=== PATIENT | male | born 1945 | race Caucasian/White ===

== ENCOUNTER 2022-08-30 17:12 | Emergency (ER) | payer OTHER ==
[~2022-08-30] VITALS: Ht 177.8 cm; Wt 79.4 kg
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
[2022-08-30] MEDS ORDERED: HYDROCODONE/APAP 5/325MG TABLET PO ONE (17:30)
[2022-08-30] MEDS ORDERED: HYDROCODONE/APAP 5/325MG TABLET ONE (17:34)
--- NOTE | 2022-08-30 19:35 | NUR ---
ARM SLING APPLIED TO AFFECTED SIDE
--- NOTE | 2022-08-30 20:05 | NUR ---
Patient discharged to home in stable condition. Written and verbal after care instructions given. Patient verbalizes understanding of instruction.
[2022-08-30 20:06] VITALS: BP 129/77
== END 2022-08-30 20:06 | disposition home or self-care (01) ==
LOC: ER 18:29
DX: S40.011A Contusion of right shoulder, initial encounter (principal); I10 Essential (primary) hypertension; X58.XXXA Exposure to other specified factors, initial encounter; Y93.89 Activity, other specified; Y92.89 Other specified places as the place of occurrence of the external cause; Y99.8 Other external cause status
CPT/HCPCS: 73030-TC